=== PATIENT | female | born 1970 | race Caucasian/White ===

== ENCOUNTER → 2017-06-27 | Day surgery (SDC) | payer OTHER ==
--- NOTE | 2017-06-26 16:36 | History & Physical Pre-Op ---
General Information and HPI History of Present Illness: Aminah is a 39-year-old female with a long-standing and nonhealing ulceration to the distal tip of her left great toe. The patient has failed an extended course of conservative care, including periodic debridements, offloading and adjunctive wound therapy. Unfortunately, the patient developed an interval osteomyelitis with associated cellulitis. Patient presents today for preoperative surgical consultation. Allergies/Medications Allergies: Coded Allergies: ciprofloxacin (From CIPRO) (Severe, HEADACHES, CHEST PAIN, LETHARGIC, WHEEZING, FELT BAD 09/16/15) gentamicin (Severe, THROW UP AND PASS OUT, DYSPNEA 09/16/15) sulfacetamide (From CLARIFOAM EF) (Severe, HIVES, DYSPNEA 09/16/15) sulfur (From CLARIFOAM EF) (Severe, HIVES, DYSPNEA 09/16/15) Sulfa (Sulfonamide Antibiotics) (Intermediate, RASH, HIVES, DYSPNEA 09/16/15) levofloxacin (From LEVAQUIN) (Intermediate, HIVES, PAIN, WHEEZING 09/16/15) shellfish derived (Intermediate, N/V/D 09/16/15) Penicillins (Mild, RASH 09/15/15) erythromycin base (THROW UP, PASS OUT, DYSPNEA 09/16/15) hydrocodone (From VICODIN) (WHEEZE, ITCHY 09/15/15) morphine (From MS CONTIN) (WHEEZING, LIPS TURN BLUE, ITCHING 09/16/15) Home Med list Albuterol Sulfate (Proair Hfa) 8.5 GM HFA.AER.AD 2 PUF INH Q4-6 PRN PRN ASTHMA (Reported) Amlodipine Besylate 10 MG TABLET 1 TAB PO DAILY BP (Reported) Budesonide (Pulmicort Flexhaler) 90 MCG AER.POW.BA 2 PUFF INH BID ASTHMA ( Reported) Cetirizine HCl (Zyrtec) 10 MG TABLET 1 TAB PO DAILY ALLERGIES (Reported) Cyclobenzaprine HCl 10 MG TABLET 1 TAB PO TID PRN MUSCLE SPASMS (Reported) Dexlansoprazole (Dexilant) 60 MG CAP.DRShaneBP 1 CAP PO DAILY GI (Reported) Dextroamphetamine/Amphetamine (Dextroamp-Amphetamin 30 MG Tab) 30 MG TABLET 1 TAB PO QAM ADD (Reported) Dextroamphetamine/Amphetamine (Dextroamp-Amphetamin 20 MG Tab) 20 MG TABLET 1 TAB PO DAILY ADD (Reported) diphenhydrAMINE HCl (Benadryl) 25 MG CAPSULE 1 CAP PO QPM ALLERGIES/SLEEP ( Reported) Duloxetine HCl 60 MG CAPSULE.DR 2 CAP PO QPM NERVE PAIN/MENTAL HEALTH ( Reported) Estradiol (Vivelle-Dot) 1 EACH PATCH.TDSW 1 PATCH TOP 2XW HRT (Reported) Ferrous Sulfate (Ferosul) 325 MG (65 MG IRON) TABLET 1 TAB PO DAILY SUPPLEMENT (Reported) Gabapentin 300 MG CAPSULE 2 CAP PO 4XDAILY NERVE PAIN (Reported) Insulin Lispro (Humalog) 100 UNIT/1 ML VIAL V-GO (Reported) Levothyroxine Sodium (Synthroid) 25 MCG TABLET 1 TAB PO DAILY THYROID ( Reported) Losartan Potassium 50 MG TABLET 1 TAB PO DAILY BP (Reported) Metformin HCl 500 MG TABLET 4 TAB PO DAILY DM (Reported) Nebivolol HCl (Bystolic) 10 MG TABLET 2 TAB PO BID HEART/BP (Reported) Quetiapine Fumarate 100 MG TABLET 1 TAB PO 4XDAILY PRN MENTAL HEALTH ( Reported) Quetiapine Fumarate (Seroquel XR) 400 MG TAB.ER.24H 2 TAB PO QPM SLEEP/MENTAL HEALTH (Reported) Rosuvastatin Calcium (Crestor) 10 MG TABLET 1 TAB PO DAILY CHOLESTEROL ( Reported) Tramadol HCl 50 MG TABLET 1 TAB PO 4 TIMES/DAY PRN PAIN (Reported) Past History Medical History Neurological: FIBROMYALGIA EENT: NONE Cardiovascular: hypertension Respiratory: asthma Gastrointestinal: irritable bowel syndrome, HERNIA PEPTIC ULCER DISEASE Hepatic: NONE Renal: NONE Musculoskeletal: NONE Psychiatric: bipolar disease, DEPRESSION Endocrine: diabetes Blood Disorders: CHRONIC ANEMIA Cancer(s): NONE PIN ATTACHER/Reproductive: OVARIAN CYST Surgical History Pertinent Surgical History: non-contributory, N Review of Systems Review of Systems: Review of systems unremarkable except for that noted in history of present illness Exam & Diagnostic Data Physical Exam: Lungs clear bilaterally. Heart sounds rate and rhythm regular. Lower extremity physical exam demonstrates intact pedal pulses bilaterally. Both dorsalis pedis and posterior tibial arteries are palpable bilaterally. Patient without any sensory motor deficits. Deep tendon reflexes grossly intact. Patient noted to have a 2 cm x 2 cm May grade 2 ulceration distal tip of the great toe. There is slough overlying a mixed granular and fibrotic wound bed. Cellulitis is noted to extend proximally 3-4 cm about the periphery of the lesion. Moderate amount of serous drainage identified. X-rays findings demonstrate erosive changes consistent with osteomyelitis. Assessment/Plan Assessment/Plan: Left great toe osteomyelitis. A lengthy discussion reviewing both surgical and conservative options was held the patient at bedside and the patient elects to go forward with surgery despite the risks. As Ranked By This Provider Problem List: 1. Osteomyelitis of foot Attending MD Review Statement Attending Statement Attending MD Statement: examined this patient
[~2017-06-27] VITALS: Ht 162.6 cm; Wt 86.2 kg
[~2017-06-27] MED LIST: AMLODIPINE BESY10 M1 PO; BENADRYL25 MG PO; BYSTOLIC10 M1 PO; CRESTOR10 M1 PO; CYCLOBENZAPRINE10 M1 PO; DEXILANT60 M1 PO; DEXTROAMP-AMPHE20 MG PO; DEXTROAMP-AMPHE30 MG PO; DEXTROAMPH SACC20 MG PO; DULOXETINE HCL30 MG PO; DULOXETINE HCL60 MG PO; FEROSUL325 M1 PO; GABAPENTIN300 M2 PO; HUMALOG100 UNIT/2; LOSARTAN POTASS50 M1 PO; METFORMIN HCL500 M3 PO; METFORMIN HCL500 M4 PO; MOBIC15 MG PO; PEPCID20 M1 PO; PREDNISOLO15 MG/5 M4 PO; PREDNISONE10 M2 PO; PROAIR HFA8.5 GM INH; PULMICORT FLEX90 MCG INH; QUETIAPINE FUM100 M1 PO; QUETIAPINE FUMA25 MG PO; QUETIAPINE FUMA50 M1 PO; SEROQUEL 25MG T25 MG PO; SEROQUEL XR400 M1 PO; SYNTHROID25 MCG PO; TRAMADOL HCL50 M1 PO; VISTARIL50 M1 PO; VIVELLE-DO0.05 MG/24 TOP; VIVELLE-DOT1 EAC1 TOP; ZOFRAN4 M2 SL; ZYRTEC10 M3 PO
--- NOTE | 2017-06-27 16:43 | Operative Report ---
Operative/Inv Procedure Report Surgery Date: 06/27/17 Name of Procedure: 1 open incision and drainage deep to the D fashion with exposure of the extensor and flexor tendon and tendon sheath multiple sites left foot 2 closure of nonhealing ulcer with local random advancement flap left foot 3 bone biopsy left foot 4 intraoperative administration of ankle block anesthesia 5 excisional debridement Pre-Operative Diagnosis: 1 open necrotic wound left foot 2 osteomyelitis left foot 3 diabetic peripheral neuropathy Post-Operative Diagnosis: The same Estimated Blood Loss: less than 50ml Surgeon/Enterprise Security Architect: Go Valdivia DPM Anesthesia: moderate sedation, block Operative/Procedure Note Note: After obtaining informed consent the patient was brought to the operating room and placed on the operating table in the supine position. The patient isn't securely fastened to the operating table utilizing safety belt. After administration of IV sedation, 10 mL of 0.5% Marcaine plain was infiltrated about the patient's left ankle. The left foot and ankle within scrubbed prepped and draped in usual aseptic manner. Attention directed to the left foot where a full-thickness chronic was identified. A 15 blade visualized sharply revised skin margins. Dissection was then carried down deep to the deep fascia with exposure of the extensor and flexor tendon and tendon sheath multiple sites left foot. All necrotic nonviable infected tissue sharply evacuated from the wound bed. Dissection and continued proximally where a dorsal plantar flap was developed and the distal phalanx was disarticulated. Specimen was sent for both microbiologic and pathologic inspection. Nipple was then irrigated with 3 L normal sterile saline fissure 50,000 units of bacitracin. Following this, the foot was redraped and the surgeon's top was changed clean gloves. Any bleeding vessels identified were cauterized a lace encountered. The dorsal and plantar flaps were then developed with undermining, mobilization and advancement of the adjacent tissue centrally. The deep side flap was held with 3-0 Vicryl and the skin edges reapproximated 3-0 nylon. Incision was dressed with Xeroform 4 x 4's Kerlix and Bin wrap. The patient was noted tolerate both procedure and anesthesia well and the patient was transported from the operative room to recovery with vital signs stable best assess intact to both the dorsal and plantar flaps.
== END ==
LOC: STS 00:44
DX: E11.621 Type 2 diabetes mellitus with foot ulcer (principal); L97.524 Non-pressure chronic ulcer of other part of left foot with necrosis of bone; E11.42 Type 2 diabetes mellitus with diabetic polyneuropathy; Z79.4 Long term (current) use of insulin; Z96.41 Presence of insulin pump (external) (internal); I10 Essential (primary) hypertension
CPT/HCPCS: 87070; 87075; 87147; J2001; J2250